=== PATIENT | female | born 1985 | race Caucasian/White ===

== ENCOUNTER 2025-01-23 11:44 | Emergency (ER) | payer OTHER, SELFPAY ==
[2025-01-23] VITALS (7 sets, daily range): BP systolic 113–128; BP diastolic 68–89; PULSE 52–70; RESP 16–18; TEMP 36.5; O2SAT 100
--- NOTE | ~2025-01-23 | CT_ITS ---
CT abdomen pelvis w con Ordering provider: Esme Adames MD History: 39 years Female with . abdominal pain, back pain . Comparison: None. Technique: CT abdomen and pelvis with IV and without oral contrast. Automated exposure control and it erative reconstruction technique were employed. The dose-length product was 710.21 mGy-cm. 100 mL Omn ipaque 350 was given IV. Findings: VISUALIZED LOWER CHEST: Dependent atelectatic changes. Nodule seen in the left lower lobe areas measuring 6 mm. 6 months follow-up CT is advised. UPPER ABDOMINAL ORGANS: Liver: Normal. Gallbladder: Faint calcification is seen inside the gallbladder suggestive of a stone. Ultrasound jane luation advised. Spleen: Normal. Stomach/duodenum: Postoperative changes in the stomach. Small sliding hiatus hernia. Pancreas: Normal. Slightly prominent pancreatic duct. Adrenals: Normal. Kidneys: Fullness of the renal pelvis bilaterally more on the right side which may indicate extrarena l pelvis. Pelviureteric junction stenosis also cannot be excluded. Follow-up advised. PELVIC ORGANS: The bladder shows slight delay thickened anterior wall. Further evaluation advised. Ut erus: Normal. Small right ovarian follicle is seen. Hyperdense area seen in the left ovary which may represent a ruptured follicle. BOWEL AND MESENTERY: Colon: No evidence of diverticulitis. Fecal material is loaded in the colon.. Normal appendix. Small Bowel: Normal. No obstruction. Peritoneum/mesentery: No free air. Trace of free fluid is seen in the pelvis. No mesenteric lymphaden opathy. RETROPERITONEUM: Normal aorta. No retroperitoneal lymphadenopathy. MUSCULOSKELETAL: Superficial soft tissues: Small fat-containing umbilical hernia with small density seen anteriorly. C linical evaluation advised.. Otherwise, The superficial soft tissues are normal. Bones: Age appropriate degenerative changes of the spine. Bilateral sacroiliacs. IMPRESSION: 1. No evidence of appendicitis, diverticulitis or intestinal obstruction. 2. Constipation 3. Highly suggestive cholelithiasis. Ultrasound evaluation advised. 4. Fullness of the renal pelvis bilaterally more on the right side which may be due to extrarenal pe lvis versus pelviureteric junction stenosis. 5. Possible rupture left ovarian follicles with trace of fluid in the pelvis.. 6. Tiny fat-containing umbilical hernia with soft tissue density seen anteriorly. Clinical evaluatio n advised. 7. Small sliding hiatus hernia with postoperative changes in the stomach. Reviewed, dictated and finalized at location A. IMPRESSION: 1. No evidence of appendicitis, diverticulitis or intestinal obstruction. 2. Constipation 3. Highly suggestive cholelithiasis. Ultrasound evaluation advised. 4. Fullness of the renal pelvis bilaterally more on the right side which may b e due to extrarenal pelvis versus pelviureteric junction stenosis. 5. Possible rupture left ovarian follicles with trace of fluid in the pelvis.. 6. Tiny fat-containing umbilical hernia with soft tissue density seen anterior ly. Clinical evaluation advised. 7. Small sliding hiatus hernia with postoperative changes in the stomach.
--- NOTE | 2025-01-23 12:00 | ECG_ITS ---
Test Date: 2025-01-23 13:39:45 Measurements Intervals [place] Rate: 47 P: 27 SD: 122 QRS: 6 QRSD: 103 T: 6 QT: 435 QTc: 387 Interpretive Statements SINUS BRADYCARDIA LOW QRS VOLTAGE IN PRECORDIAL LEADS INCOMPLETE RIGHT BUNDLE BRANCH BLOCK BORDERLINE T WAVE ABNORMALITY- INFERIOR LEADS BASELINE ARTIFACT- I, II, AVR ABNORMAL ECG No previous ECG available for comparison Electronically Signed On 01-23-2025 14:15:30 CDT by Ti Pyle D.O.
--- NOTE | 2025-01-23 12:02 | ED.NAVMDI ---
HPI - Nausea/Vomiting/Diarrhea General Chief complaint: Dizziness <Angela Alfred APRN - Last Filed: 01/23/25 12:04> Stated complaint: nausea, dizziness <Angela Alfred APRN - Last Filed: 01/23/25 12:04> Time Seen by Provider: 01/23/25 11:55 <Angela Alfred APRN - Last Filed: 01/23/25 12:04> Focused HPI: Patient is a 39-year-old female who presents to the ER with nausea and vomiting, back pain, dizziness, shortness of breath, and abdominal pain. She reports her symptoms started on Sunday with palpitations. Patient reports she has a history of gastric bypass surgery and smokes weed every day to help with her appetite. She reports she had a similar episode approximately 1 year ago but is unsure what caused it and ?it was not this bad. Patient denies any other pertinent medical history. She denies any chest pain, lower extremity swelling, or headache. GENERAL: Ill-appearing, well-nourished, and in no acute distress. HEAD: Normocephalic, atraumatic. CHEST: Clear to auscultation. ?No respiratory distress. HEART: Regular rate and rhythm.? NEURO: ?Alert and oriented x3. Patient screened in triage and initial orders placed.? ?Additional care and disposition to be based upon?diagnostic testing and treatment. <Angela Alfred APRN - Last Filed: 01/23/25 12:04> Source: patient, RN notes reviewed and old records reviewed <Esme Adames MD - Last Filed: 01/23/25 21:59> Mode of arrival: ambulatory <Esme Adames MD - Last Filed: 01/23/25 21:59> Limitations: no limitations <Esme Adames MD - Last Filed: 01/23/25 21:59> Related Data Allergies/Adverse reactions: Allergies Allergy/AdvReac Type Severity Reaction Status Date / Time No Known Allergies Allergy Verified 01/23/25 11:47 <Angela Alfred APRN - Last Filed: 01/23/25 12:04> Review of Systems Constitutional: Constitutional: Reports fatigue <Esme Adames MD - Last Filed: 01/23/25 21:59> PMFSH Past Medical History Medical History: Medical History (Updated 01/23/25 @ 21:57 by Esme Adames MD) PCOS (polycystic ovarian syndrome) <Angela Alfred, [employer]AD[employer] ARCHITECT - Last Filed: 01/23/25 12:04> Surgical History Surgical History: Surgical History (Updated 01/23/25 @ 21:57 by Esme Adames MD) H/O gastric sleeve <Angela Alfred, [employer]AD[employer] SOLUTION ARCHITECT - Last Filed: 01/23/25 12:04> Social History Social History: Social History (Updated 01/23/25 @ 21:58 by Esme Adames MD) Substance use type: marijuana <Angela Alfred, NAJMA - Last Filed: 01/23/25 12:04> Exam Const: General: no acute distress and alert <Esme Adames MD - Last Filed: 01/23/25 21:59> Nutritional Appearance: well nourished <Esme Adames MD - Last Filed: 01/23/25 21:59> Orientation/consciousness: patient oriented x3 <Esme Adames MD - Last Filed: 01/23/25 21:59> HENMT: Head: normal to inspection <Esme Adames MD - Last Filed: 01/23/25 21:59> Eyes: EOM: EOMs intact bilaterally <Esme Adames MD - Last Filed: 01/23/25 21:59> Resp: Effort & Inspection: normal respiratory effort <Esme Adames MD - Last Filed: 01/23/25 21:59> Auscultation: clear to auscultation bilaterally <Esme Adames MD - Last Filed: 01/23/25 21:59> Cardio: Rate: regular rate <Esme Adames MD - Last Filed: 01/23/25 21:59> Rhythm: regular rhythm <Esme Adames MD - Last Filed: 01/23/25 21:59> Heart sounds: no murmurs <Esme Adames MD - Last Filed: 01/23/25 21:59> GI: GI Palp: Yes Soft to palpation, No Tenderness to palpation present (GI), No Guarding due to palpation present (GI) and No Rigid due to palpation <Esme Adames MD - Last Filed: 01/23/25 21:59> Auscultation: normal bowel sounds <Esme Adames MD - Last Filed: 01/23/25 21:59> Back/Spine/Pelvis: Back: no CVA tenderness <Esme Adames MD - Last Filed: 01/23/25 21:59> Skin: General skin exam: normal color <Esme Adames MD - Last Filed: 01/23/25 21:59> Rashes: no rashes <Esme Adames MD - Last Filed: 01/23/25 21:59> Wounds: no wounds <Esme Adames MD - Last Filed: 01/23/25 21:59> Neuro: General: patient oriented x3, moves all extremities and CN's II-XI intact bilaterally <Esme Adames MD - Last Filed: 01/23/25 21:59> Extrem: General: normal to inspection <Esme Adames MD - Last Filed: 01/23/25 21:59> Psych: Mental Status: mental status grossly normal <Esme Adames MD - Last Filed: 01/23/25 21:59> Affect: normal affect <Esme Adames MD - Last Filed: 01/23/25 21:59> Attitude: cooperative <Esme Adames MD - Last Filed: 01/23/25 21:59> Course Reevaluation(s) Reevaluation #1: PAtient states that her headache has resolved. She is feeling much better. I discussed that she is pending CT. She is also currently getting IV fluids. <Esme Adames MD - Last Filed: 01/23/25 21:59> Date: 01/23/25 <Esme Adames MD - Last Filed: 01/23/25 21:59> Time: 16:53 <Esme Adames MD - Last Filed: 01/23/25 21:59> Reevaluation #2: I Discussed with patient and about multiple CT findings. She has mild anemia but other alexander normal LFTs, pancreas and normal wbc. No sign of acute cholecystitis . Normal creatinine so discussed follow up outpatient for right renal pelvis fullness. No UTI. Patient is agreeable and has no additional questions. <Esme Adames MD - Last Filed: 01/23/25 21:59> Date: 01/23/25 <Esme Adames MD - Last Filed: 01/23/25 21:59> Time: 17:53 <Esme Adames MD - Last Filed: 01/23/25 21:59> Vital Signs Vital signs: Vital Signs Temperature 97.7 F 01/23/25 11:55 Pulse Rate 61 01/23/25 11:55 Respiratory Rate 16 01/23/25 11:55 Blood Pressure 122/68 01/23/25 11:55 Pulse Oximetry 100 01/23/25 11:55 Oxygen Delivery Room Air 01/23/25 11:55 Temperature 97.7 F 01/23/25 11:55 Pulse Rate 57 L 01/23/25 17:16 Respiratory Rate 18 01/23/25 17:16 Blood Pressure 116/68 01/23/25 17:16 Pulse Oximetry 100 01/23/25 17:16 Oxygen Delivery Room Air 01/23/25 11:55 <Angela Alfred, NAJMA - Last Filed: 01/23/25 12:04> Vital Signs Temperature 97.7 F 01/23/25 11:55 Pulse Rate 61 01/23/25 11:55 Respiratory Rate 16 01/23/25 11:55 Blood Pressure 122/68 01/23/25 11:55 Pulse Oximetry 100 01/23/25 11:55 Oxygen Delivery Room Air 01/23/25 11:55 Temperature 97.7 F 01/23/25 11:55 Pulse Rate 57 L 01/23/25 17:16 Respiratory Rate 18 01/23/25 17:16 Blood Pressure 116/68 01/23/25 17:16 Pulse Oximetry 100 01/23/25 17:16 Oxygen Delivery Room Air 01/23/25 11:55 <Esme Adames MD - Last Filed: 01/23/25 21:59> MDM - Nausea/Vomiting/Diarrhea Differential Diagnosis Differential diagnosis: Likely gastroenteritis, drug-induced nausea and vomiting and dehydration <Esme Adames MD - Last Filed: 01/23/25 21:59> Medical Records Attestation: I reviewed the patient's medical records. <Esme Adames MD - Last Filed: 01/23/25 21:59> Lab Data Attestation: I reviewed the patient's lab results. <Esme Adames MD - Last Filed: 01/23/25 21:59> Result diagrams: 01/23/25 13:48 01/23/25 13:48 <Angela Alfred APRN - Last Filed: 01/23/25 12:04> Labs: Lab Results 01/23/25 01/23/25 01/23/25 Range/Units 13:47 13:48 13:54 WBC 7.7 (4.5-10.0) K/mm3 RBC 4.33 (4.2-5.4) M/mm3 Hgb 10.7 L (12.0-15.0) g/dL Hct 34.9 L (37.0-47.0) % MCV 80.6 (80-100) fl MCH 24.7 L (26-34) pg MCHC 30.7 L (32-36) g/dl RDW 15.1 H (11.5-14.5) % Plt Count 300 (150-375) k/mm3 MPV 10.3 (7.4-10.4) fl Immature Gran % (Auto) 0.4 (0-0.5) % Neut % (Auto) 65.2 (45.5-73.1) % Lymph % (Auto) 28.0 (18.3-44.2) % [place] % (Auto) 5.4 (2.6-8.5) % Eos % (Auto) 0.5 (0-4.4) % Baso % (Auto) 0.5 (0.2-1.2) % Lymph # (Auto) 2.16 (0.9-3.2) K/mm3 [place] # (Auto) 0.4 (0.1-0.6) K/mm3 Eos # (Auto) 0.0 (0-0.3) K/mm3 Baso # (Auto) 0.0 (0.0-0.1) K/mm3 Abs Immat Gran (auto) 0.03 (0.00-0.031) K/mm3 Absolute Neuts (auto) 5.0 (1.3-6.7) K/mm3 Absolute Nucleated RBC 0.000 (0.0-0.012) K/mm3 Nucleated RBC % 0.0 (0.0-0.2) % PT 13.1 (11.1-14.7) Seconds INR 1.0 APTT 25.4 (22.3-36.8) Seconds D-Dimer 0.44 (<0.48) ug/mL Sodium 141 (137-145) mmol/L Potassium 4.1 (3.4-5.0) mmol/L Chloride 108 H (98-107) mmol/L Carbon Dioxide 23 (22-30) mmol/L Anion Gap 10 (4-12) mmol/L BUN 8 (7-17) mg/dL Creatinine 0.66 L (0.7-1.0) mg/dL Estim Creat Clear Calc 103 ml/min Estimated GFR > 60 (59 - ) Glucose 83 (65-110) mg/dL POC Capillary Glucose 80 (65-105) mg/dl Calcium 9.4 (8.4-10.2) mg/dL Magnesium 1.9 (1.6-2.3) mg/dL Total Bilirubin 0.5 (0.2-1.3) mg/dL AST 25 (14-36) U/L ALT 7 (6-35) U/L Alkaline Phosphatase 60 (38-126) U/L Troponin I < 0.012 (0.000-0.034) ng/mL Total Protein 7.1 (6.3-8.2) g/dL Albumin 4.3 (3.5-5.1) g/dL Lipase 273 (23-300) U/L Urine Color Yellow (Yellow) Urine Appearance Clear (Clear) Urine pH 7.0 (5.0-9.0) Ur Specific [place] 1.004 (1.001-1.035) Urine Protein Negative (Negative) mg/dL Urine Glucose (UA) Negative (Negative) mg/dL Urine Ketones Negative (Negative) mg/dL Ur Blood (Man) Negative (Negative) Urine Nitrate Negative (Negative) Urine Bilirubin Negative (Negative) Urine Urobilinogen 0.2 (<2.0) mg/dL Leukocyte Esterase Rfl Negative (Negative) JOHN/UL Urine Test Negative Urine Opiates Screen Negative (Negative) Urine Methadone Screen Negative (Negative) Ur Barbiturates Screen Negative (Negative) Ur Phencyclidine Scrn Negative (Negative) Ur Amphetamine Screen Negative (Negative) U Benzodiazepines Scrn Negative (Negative) Urine Cocaine Screen Negative (Negative) U Cannabinoids Screen Positive A (Negative) Influenza A (RT-PCR) (Negative) Influenza B (RT-PCR) (Negative) SARS-CoV-2 RNA (RT-PCR) (Negative) 01/23/25 Range/Units 15:18 WBC (4.5-10.0) K/mm3 RBC (4.2-5.4) M/mm3 Hgb (12.0-15.0) g/dL Hct (37.0-47.0) % MCV (80-100) fl MCH (26-34) pg MCHC (32-36) g/dl RDW (11.5-14.5) % Plt Count (150-375) k/mm3 MPV (7.4-10.4) fl Immature Gran % (Auto) (0-0.5) % Neut % (Auto) (45.5-73.1) % Lymph % (Auto) (18.3-44.2) % [place] % (Auto) (2.6-8.5) % Eos % (Auto) (0-4.4) % Baso % (Auto) (0.2-1.2) % Lymph # (Auto) (0.9-3.2) K/mm3 [place] # (Auto) (0.1-0.6) K/mm3 Eos # (Auto) (0-0.3) K/mm3 Baso # (Auto) (0.0-0.1) K/mm3 Abs Immat Gran (auto) (0.00-0.031) K/mm3 Absolute Neuts (auto) (1.3-6.7) K/mm3 Absolute Nucleated RBC (0.0-0.012) K/mm3 Nucleated RBC % (0.0-0.2) % PT (11.1-14.7) Seconds INR APTT (22.3-36.8) Seconds D-Dimer (<0.48) ug/mL Sodium (137-145) mmol/L Potassium (3.4-5.0) mmol/L Chloride (98-107) mmol/L Carbon Dioxide (22-30) mmol/L Anion Gap (4-12) mmol/L BUN (7-17) mg/dL Creatinine (0.7-1.0) mg/dL Estim Creat Clear Calc ml/min Estimated GFR (59 - ) Glucose (65-110) mg/dL POC Capillary Glucose (65-105) mg/dl Calcium (8.4-10.2) mg/dL Magnesium (1.6-2.3) mg/dL Total Bilirubin (0.2-1.3) mg/dL AST (14-36) U/L ALT (6-35) U/L Alkaline Phosphatase (38-126) U/L Troponin I (0.000-0.034) ng/mL Total Protein (6.3-8.2) g/dL Albumin (3.5-5.1) g/dL Lipase (23-300) U/L Urine Color (Yellow) Urine Appearance (Clear) Urine pH (5.0-9.0) Ur Specific [place] (1.001-1.035) Urine Protein (Negative) mg/dL Urine Glucose (UA) (Negative) mg/dL Urine Ketones (Negative) mg/dL Ur Blood (Man) (Negative) Urine Nitrate (Negative) Urine Bilirubin (Negative) Urine Urobilinogen (<2.0) mg/dL Leukocyte Esterase Rfl (Negative) JOHN/UL Urine Test Urine Opiates Screen (Negative) Urine Methadone Screen (Negative) Ur Barbiturates Screen (Negative) Ur Phencyclidine Scrn (Negative) Ur Amphetamine Screen (Negative) U Benzodiazepines Scrn (Negative) Urine Cocaine Screen (Negative) U Cannabinoids Screen (Negative) Influenza A (RT-PCR) Negative (Negative) Influenza B (RT-PCR) Negative (Negative) SARS-CoV-2 RNA (RT-PCR) Negative (Negative) <Angela Alfred, [employer] ARCHITECT - Last Filed: 01/23/25 12:04> Lab Results 01/23/25 01/23/25 01/23/25 Range/Units 13:47 13:48 13:54 WBC 7.7 (4.5-10.0) K/mm3 RBC 4.33 (4.2-5.4) M/mm3 Hgb 10.7 L (12.0-15.0) g/dL Hct 34.9 L (37.0-47.0) % MCV 80.6 (80-100) fl MCH 24.7 L (26-34) pg MCHC 30.7 L (32-36) g/dl RDW 15.1 H (11.5-14.5) % Plt Count 300 (150-375) k/mm3 MPV 10.3 (7.4-10.4) fl Immature Gran % (Auto) 0.4 (0-0.5) % Neut % (Auto) 65.2 (45.5-73.1) % Lymph % (Auto) 28.0 (18.3-44.2) % [place] % (Auto) 5.4 (2.6-8.5) % Eos % (Auto) 0.5 (0-4.4) % Baso % (Auto) 0.5 (0.2-1.2) % Lymph # (Auto) 2.16 (0.9-3.2) K/mm3 [place] # (Auto) 0.4 (0.1-0.6) K/mm3 Eos # (Auto) 0.0 (0-0.3) K/mm3 Baso # (Auto) 0.0 (0.0-0.1) K/mm3 Abs Immat Gran (auto) 0.03 (0.00-0.031) K/mm3 Absolute Neuts (auto) 5.0 (1.3-6.7) K/mm3 Absolute Nucleated RBC 0.000 (0.0-0.012) K/mm3 Nucleated RBC % 0.0 (0.0-0.2) % PT 13.1 (11.1-14.7) Seconds INR 1.0 APTT 25.4 (22.3-36.8) Seconds D-Dimer 0.44 (<0.48) ug/mL Sodium 141 (137-145) mmol/L Potassium 4.1 (3.4-5.0) mmol/L Chloride 108 H (98-107) mmol/L Carbon Dioxide 23 (22-30) mmol/L Anion Gap 10 (4-12) mmol/L BUN 8 (7-17) mg/dL Creatinine 0.66 L (0.7-1.0) mg/dL Estim Creat Clear Calc 103 ml/min Estimated GFR > 60 (59 - ) Glucose 83 (65-110) mg/dL POC Capillary Glucose 80 (65-105) mg/dl Calcium 9.4 (8.4-10.2) mg/dL Magnesium 1.9 (1.6-2.3) mg/dL Total Bilirubin 0.5 (0.2-1.3) mg/dL AST 25 (14-36) U/L ALT 7 (6-35) U/L Alkaline Phosphatase 60 (38-126) U/L Troponin I < 0.012 (0.000-0.034) ng/mL Total Protein 7.1 (6.3-8.2) g/dL Albumin 4.3 (3.5-5.1) g/dL Lipase 273 (23-300) U/L Urine Color Yellow (Yellow) Urine Appearance Clear (Clear) Urine pH 7.0 (5.0-9.0) Ur Specific [place] 1.004 (1.001-1.035) Urine Protein Negative (Negative) mg/dL Urine Glucose (UA) Negative (Negative) mg/dL Urine Ketones Negative (Negative) mg/dL Ur Blood (Man) Negative (Negative) Urine Nitrate Negative (Negative) Urine Bilirubin Negative (Negative) Urine Urobilinogen 0.2 (<2.0) mg/dL Leukocyte Esterase Rfl Negative (Negative) JOHN/UL Urine Test Negative Urine Opiates Screen Negative (Negative) Urine Methadone Screen Negative (Negative) Ur Barbiturates Screen Negative (Negative) Ur Phencyclidine Scrn Negative (Negative) Ur Amphetamine Screen Negative (Negative) U Benzodiazepines Scrn Negative (Negative) Urine Cocaine Screen Negative (Negative) U Cannabinoids Screen Positive A (Negative) Influenza A (RT-PCR) (Negative) Influenza B (RT-PCR) (Negative) SARS-CoV-2 RNA (RT-PCR) (Negative) 01/23/25 Range/Units 15:18 WBC (4.5-10.0) K/mm3 RBC (4.2-5.4) M/mm3 Hgb (12.0-15.0) g/dL Hct (37.0-47.0) % MCV (80-100) fl MCH (26-34) pg MCHC (32-36) g/dl RDW (11.5-14.5) % Plt Count (150-375) k/mm3 MPV (7.4-10.4) fl Immature Gran % (Auto) (0-0.5) % Neut % (Auto) (45.5-73.1) % Lymph % (Auto) (18.3-44.2) % [place] % (Auto) (2.6-8.5) % Eos % (Auto) (0-4.4) % Baso % (Auto) (0.2-1.2) % Lymph # (Auto) (0.9-3.2) K/mm3 [place] # (Auto) (0.1-0.6) K/mm3 Eos # (Auto) (0-0.3) K/mm3 Baso # (Auto) (0.0-0.1) K/mm3 Abs Immat Gran (auto) (0.00-0.031) K/mm3 Absolute Neuts (auto) (1.3-6.7) K/mm3 Absolute Nucleated RBC (0.0-0.012) K/mm3 Nucleated RBC % (0.0-0.2) % PT (11.1-14.7) Seconds INR APTT (22.3-36.8) Seconds D-Dimer (<0.48) ug/mL Sodium (137-145) mmol/L Potassium (3.4-5.0) mmol/L Chloride (98-107) mmol/L Carbon Dioxide (22-30) mmol/L Anion Gap (4-12) mmol/L BUN (7-17) mg/dL Creatinine (0.7-1.0) mg/dL Estim Creat Clear Calc ml/min Estimated GFR (59 - ) Glucose (65-110) mg/dL POC Capillary Glucose (65-105) mg/dl Calcium (8.4-10.2) mg/dL Magnesium (1.6-2.3) mg/dL Total Bilirubin (0.2-1.3) mg/dL AST (14-36) U/L ALT (6-35) U/L Alkaline Phosphatase (38-126) U/L Troponin I (0.000-0.034) ng/mL Total Protein (6.3-8.2) g/dL Albumin (3.5-5.1) g/dL Lipase (23-300) U/L Urine Color (Yellow) Urine Appearance (Clear) Urine pH (5.0-9.0) Ur Specific [place] (1.001-1.035) Urine Protein (Negative) mg/dL Urine Glucose (UA) (Negative) mg/dL Urine Ketones (Negative) mg/dL Ur Blood (Man) (Negative) Urine Nitrate (Negative) Urine Bilirubin (Negative) Urine Urobilinogen (<2.0) mg/dL Leukocyte Esterase Rfl (Negative) JOHN/UL Urine Test Urine Opiates Screen (Negative) Urine Methadone Screen (Negative) Ur Barbiturates Screen (Negative) Ur Phencyclidine Scrn (Negative) Ur Amphetamine Screen (Negative) U Benzodiazepines Scrn (Negative) Urine Cocaine Screen (Negative) U Cannabinoids Screen (Negative) Influenza A (RT-PCR) Negative (Negative) Influenza B (RT-PCR) Negative (Negative) SARS-CoV-2 RNA (RT-PCR) Negative (Negative) <Esme Adames MD - Last Filed: 01/23/25 21:59> Imaging Data Radiologist's impression: ITS Impressions Abdomen/Pelvis CT 01/23/25 17:12 IMPRESSION: 1. No evidence of appendicitis, diverticulitis or intestinal obstruction. 2. Constipation 3. Highly suggestive cholelithiasis. Ultrasound evaluation advised. 4. Fullness of the renal pelvis bilaterally more on the right side which may be due to extrarenal pelvis versus pelviureteric junction stenosis. 5. Possible rupture left ovarian follicles with trace of fluid in the pelvis.. 6. Tiny fat-containing umbilical hernia with soft tissue density seen anteriorly. Clinical evaluation advised. 7. Small sliding hiatus hernia with postoperative changes in the stomach. <Esme Adames MD - Last Filed: 01/23/25 21:59> Discharge Plan Discharge Clinical Impression: Cyst of left ovary, Incidental lung nodule, Biliary colic <Angela Alfred APRN - Last Filed: 01/23/25 12:04> Patient Disposition: Home <Angela Alfred APRN - Last Filed: 01/23/25 12:04> Condition: Improved <Angela Alfred APRN - Last Filed: 01/23/25 12:04> Instructions: Gallstones (ED), Dizziness (ED), Ruptured Ovarian Cyst (ED) <Angela Alfred APRN - Last Filed: 01/23/25 12:04> Additional Instructions: I recommend that you eat low fat diet. Follow up with your primary care provider regarding today's visit. You can also follow up with receiver dispatcher regarding your ovarian cyst. REturn to ER if symptoms worsen <Angela Alfred APRN - Last Filed: 01/23/25 12:04> Patient Language: Tunisian <Angela Alfred APRN - Last Filed: 01/23/25 12:04> Prescriptions: New ondansetron 4 mg tablet,disintegrating 4 mg PO Q8H PRN (Reason: nausea and vomiting) Qty: 14 0RF famotidine [Pepcid] 20 mg tablet 20 mg PO BID Qty: 14 0RF <Angela Alfred APRN - Last Filed: 01/23/25 12:04> Follow-up/Referrals: PHYSICIAN NOT ON STAFF,NONSTAFF [Non-Staff] - <Angela Alfred APRN - Last Filed: 01/23/25 12:04>
[2025-01-23 13:58] LABS: Basophils Percent Auto 0.5 % (0.2-1.2); Eosinophils Percent Auto 0.5 % (0-4.4); Hematocrit 34.9 % (37.0-47.0); Hemoglobin 10.7 g/dL (12.0-15.0); Immature Granulocyte Absolute 0.03 K/mm3 (0.00-0.031); Immature Granulocyte Percent A 0.4 % (0-0.5); Lymphocytes Absolute Auto 2.16 K/mm3 (0.9-3.2); Mean Corpuscular HGB Conc 30.7 g/dl (32-36); Mean Corpuscular Hemoglobin 24.7 pg (26-34); Mean Corpuscular Volume 80.6 fl (80-100); Mean Platelet Volume 10.3 fl (7.4-10.4); Monocytes Absolute Auto 0.4 K/mm3 (0.1-0.6); Monocytes Percent Auto 5.4 % (2.6-8.5); Neutrophils Percent Auto 65.2 % (45.5-73.1); Platelet Count Result 300 k/mm3 (150-375); Red Blood Count 4.33 M/mm3 (4.2-5.4); Red Cell Distribution Width 15.1 % (11.5-14.5); White Blood Count 7.7 K/mm3 (4.5-10.0)
[2025-01-23 13:59] LABS: Glucose Point of Care 80 mg/dl (65-105)
[2025-01-23 14:03] LABS: Add Urine Microscopic? NO; Appearance Urine Clear (Clear); Bilirubin Urine Negative (Negative); Blood Urine Negative (Negative); Color Urine Yellow (Yellow); Glucose Urine UA Negative (Negative); Ketones Urine Negative (Negative); Leukocyte Esterase Ur Negative LEU/UL (Negative); Nitrate Urine Negative (Negative); Protein Urine Negative (Negative); Specific Grav Ur 1.004 (1.001-1.035); Urobilinogen Urine 0.2 mg/dL (<2.0)
[2025-01-23 14:26] LABS: Amphetamine Screen Urine Negative (Negative); Barbiturate Screen Urine Negative (Negative); Benzodiazepines Screen Urine Negative (Negative); Cannabinoid Screen Urine Positive (Negative); Cocaine Screen Urine Negative (Negative); Methadone Screen Urine Negative (Negative); Opiate Screen Urine Negative (Negative); Phencyclidine Screen Urine Negative (Negative); Troponin I < 0.012 ng/mL (0.000-0.034)
[2025-01-23 14:29] LABS: Alanine Aminotransferase 7 U/L (6-35); Albumin Level 4.3 g/dL (3.5-5.1); Alkaline Phosphatase 60 U/L (38-126); Anion Gap 10 mmol/L (4-12); Aspartate Amino Transferase 25 U/L (14-36); Bilirubin,Total 0.5 mg/dL (0.2-1.3); Blood Urea Nitrogen 8 mg/dL (7-17); Calcium 9.4 mg/dL (8.4-10.2); Carbon Dioxide 23 mmol/L (22-30); Chloride 108 mmol/L (98-107); Estimated CRCL calculation 103 ml/min; Estimated Glomerular Filt Rate > 60; Glucose 83 mg/dL (65-110); Lipase 273 U/L (23-300); Potassium 4.1 mmol/L (3.4-5.0); Sodium 141 mmol/L (137-145); Total Protein 7.1 g/dL (6.3-8.2)
[2025-01-23 15:07] LABS: Magnesium 1.9 mg/dL (1.6-2.3)
[2025-01-23 15:10] LABS: Partial Thromboplastin Time 25.4 Seconds (22.3-36.8); Prothrombin Time 13.1 Seconds (11.1-14.7)
[2025-01-23 15:14] LABS: D Dimer 0.44 ug/mL (<0.48)
[2025-01-23 15:46] LABS: Pregnancy On Board Control Positive; Urine Pregnancy Test Negative
[2025-01-23] MEDS: ONDANSETRON INJ 4 MG/2 ML VIAL IV PUSH (15:51)
[2025-01-23] MEDS: diphenhydrAMINE HCl INJ 50 MG/ML VIAL 25 MG IV PUSH (15:51)
[2025-01-23] MEDS: LACTATED RINGERS 1,000 ML 999 ML IV CONT (15:52)
[2025-01-23] MEDS: METOCLOPRAMIDE HCL INJ 10 MG/2 ML VIAL IV PUSH (15:52)
[2025-01-23 16:01] LABS: Influenza A QL RT-PCR Negative (Negative); Influenza B QL RT-PCR Negative (Negative); SARS-CoV-2 RNA PCR Negative (Negative)
== END 2025-01-23 18:06 | disposition home or self-care (01) ==
PROVIDERS: Registered Nurse; Emergency Provider General Practice
DX: N83.202 Unspecified ovarian cyst, left side (principal); R91.1 Solitary pulmonary nodule; K80.50 Calculus of bile duct without cholangitis or cholecystitis without obstruction; Z20.822 Contact with and (suspected) exposure to COVID-19
CPT/HCPCS: 36415; 74177; 80053; 80307; 81003; 81025; 82948; 83690; 83735; 84484; 85025; 85380; 85610; 85730; 87636; 93005; 96361; 96374; 96375; 99284; J1200; J2405; J2765; J7120; Q9967